=== PATIENT | male | born 1970 | race Caucasian/White ===

== ENCOUNTER 2023-06-23 10:44 | Emergency (ER) | payer OTHER ==
[~2023-06-23] VITALS: Ht 162.6 cm; Wt 77.6 kg
[2023-06-23 11:14] VITALS: TEMP 98
[2023-06-23 12:55] LABS: BASOPHILS % (AUTO) 1.1 % (0.0-2.0); EOSINOPHILS % (AUTO) 1.7 % (1.0-6.0); HEMATOCRIT 42.7 % (41-53); HEMOGLOBIN 14.3 g/dL (13.5-17.5); LYMPHOCYTES # (AUTO) 1.9 K/uL (1.0-4.8); LYMPHOCYTES % (AUTO) 31.7 % (22.0-44.0); MEAN CORPUSCULAR HEMOGLOBIN 32.3 pg (26.0-34.0); MEAN CORPUSCULAR HGB CONC 33.5 G/dL (31.0-37.0); MEAN CORPUSCULAR VOLUME 97 fL (80-100); MONOCYTES # (AUTO) 0.5 K/uL (0.1-1.0); MONOCYTES % (AUTO) 8.9 % (2.0-9.0); NEUTROPHILS # (AUTO) 3.4 K/uL (1.8-7.7); NEUTROPHILS % (AUTO) 56.6 % (40.0-70.0); PLATELET COUNT (AUTO) 175 K/uL (150-450); RED BLOOD CELL COUNT(AUTO) 4.43 MIL/uL (4.50-5.90); RED CELL DISTRIBUTION WIDTH 13.8 % (11.5-14.5); WHITE BLOOD COUNT (AUTO) 6.1 K/uL (4.5-11.0)
[2023-06-23 13:01] LABS: ALCOHOL, URINE DRUG SCREEN POSITIVE (NEGATIVE); AMPHET/METH SCREEN,URINE NEGATIVE (NEGATIVE); BARBITURATE SCREEN, URINE NEGATIVE (NEGATIVE); BENZODIAZEPINES SCREEN,URINE NEGATIVE (NEGATIVE); CANNABINOID SCREEN,URINE NEGATIVE (NEGATIVE); COCAINE SCREEN,URINE NEGATIVE (NEGATIVE); METHADONE SCREEN, URINE NEGATIVE (NEGATIVE); OPIATE SCREEN,URINE NEGATIVE (NEGATIVE); PHENCYCLIDINE SCREEN,URINE NEGATIVE (NEGATIVE)
[2023-06-23 13:04] LABS: ANION GAP 9 mmol/L (8-16); CALCIUM, TOTAL 8.9 mg/dL (8.8-10.5); CARBON DIOXIDE 26 mmol/L (22-29); CHLORIDE 102 mmol/L (98-107); CREATININE 0.64 mg/dL (0.60-1.30); GLOMERULAR FILTR. RATE CALC > 60 mL/min (>60); GLUCOSE,RANDOM 83 mg/dL (70-110); POTASSIUM 3.8 mmol/L (3.5-5.1); SODIUM SERUM 137 mmol/L (136-145); UREA NITROGEN, BLOOD 10 mg/dL (7-18)
[2023-06-23 13:10] LABS: ALANINE AMINOTRANSFERASE 141 U/L (12-78); ALKALINE PHOSPHATASE 61 U/L (46-116); ASPARTATE AMINOTRANSFERASE 107 U/L (15-37); BILIRUBIN,TOTAL 0.3 mg/dL (0.1-1.0); TOTAL PROTEIN, SERUM 7.8 g/dL (6.4-8.2)
[2023-06-23 13:12] LABS: TROPONIN I-HIGH SENSITIVITY 6 ng/L (<76)
[2023-06-23 13:21] LABS: ALCOHOL, BLOOD (SERUM) 219 mg/dL (0-10)
[2023-06-23 14:53] VITALS: BP 122/69; PULSE 79; RESP 16
== END 2023-06-23 14:55 | disposition home or self-care (01) ==
LOC: EMS 10:46
DX: F10.229 Alcohol dependence with intoxication, unspecified (principal); K70.30 Alcoholic cirrhosis of liver without ascites; Y90.9 Presence of alcohol in blood, level not specified; R53.1 Weakness
CPT/HCPCS: 99284; 70450; 80053; 84484; 85025; 36415; 93005; 80307; G0480

== ENCOUNTER 2023-07-04 18:52 | Emergency (ER) | payer OTHER ==
[~2023-07-04] VITALS: Ht 167.6 cm; Wt 86.8 kg
[2023-07-04] MEDS ORDERED: ONDANSETRON HCL 4 MG/2 ML VIAL IVP ONE (21:15)
[2023-07-04] MEDS ORDERED: SODIUM CHLORIDE 0.9% 1,000 ML IV ONE (21:15)
[2023-07-04] MEDS ORDERED: DiphenhydrAMINE HCL 50 MG/ML VIAL IVP ONE (21:15)
[2023-07-04 21:22] LABS: BASOPHILS % (AUTO) 1.4 % (0.0-2.0); EOSINOPHILS % (AUTO) 0.8 % (1.0-6.0); HEMATOCRIT 38.8 % (41-53); HEMOGLOBIN 13.4 g/dL (13.5-17.5); LYMPHOCYTES % (AUTO) 31.6 % (22.0-44.0); MEAN CORPUSCULAR HEMOGLOBIN 32.7 pg (26.0-34.0); MEAN CORPUSCULAR HGB CONC 34.5 G/dL (31.0-37.0); MEAN CORPUSCULAR VOLUME 95 fL (80-100); MONOCYTES # (AUTO) 0.5 K/uL (0.1-1.0); MONOCYTES % (AUTO) 7.9 % (2.0-9.0); NEUTROPHILS # (AUTO) 3.7 K/uL (1.8-7.7); NEUTROPHILS % (AUTO) 58.3 % (40.0-70.0); PLATELET COUNT (AUTO) 199 K/uL (150-450); RED BLOOD CELL COUNT(AUTO) 4.09 MIL/uL (4.50-5.90); RED CELL DISTRIBUTION WIDTH 14.3 % (11.5-14.5); WHITE BLOOD COUNT (AUTO) 6.4 K/uL (4.5-11.0)
[2023-07-04 21:34] LABS: ANION GAP 12 mmol/L (8-16); CALCIUM, TOTAL 8.9 mg/dL (8.8-10.5); CARBON DIOXIDE 26 mmol/L (22-29); CHLORIDE 101 mmol/L (98-107); CREATININE 0.65 mg/dL (0.60-1.30); GLOMERULAR FILTR. RATE CALC > 60 mL/min (>60); GLUCOSE,RANDOM 100 mg/dL (70-110); POTASSIUM 3.5 mmol/L (3.5-5.1); SODIUM SERUM 139 mmol/L (136-145); UREA NITROGEN, BLOOD 10 mg/dL (7-18)
[2023-07-04 21:40] LABS: ALANINE AMINOTRANSFERASE 63 U/L (12-78); ALBUMIN 4.1 g/dL (3.4-5.0); ALKALINE PHOSPHATASE 68 U/L (46-116); ASPARTATE AMINOTRANSFERASE 43 U/L (15-37); BILIRUBIN,TOTAL 0.2 mg/dL (0.1-1.0); TOTAL PROTEIN, SERUM 7.6 g/dL (6.4-8.2)
[2023-07-04 21:41] LABS: ALCOHOL, BLOOD (SERUM) 260 mg/dL (0-10)
[2023-07-04 22:57] LABS: TROPONIN I-HIGH SENSITIVITY 8 ng/L (<76)
[2023-07-05 00:12] VITALS: BP 141/91; PULSE 73; RESP 18; TEMP 98.6
== END 2023-07-05 00:19 | disposition home or self-care (01) ==
LOC: EMS 18:53
DX: F10.129 Alcohol abuse with intoxication, unspecified (principal); R53.1 Weakness; R51.9 Headache, unspecified; K70.30 Alcoholic cirrhosis of liver without ascites
CPT/HCPCS: 99285; 96374; 70450; 96361; 96375; 80053; 84484; 85025; 36415; 93005; G0480; J1200; J2405; J7030

== ENCOUNTER 2024-01-09 17:13 | Emergency (ER) | payer MEDICAID, OTHER ==
[~2024-01-09] VITALS: Ht 152.4 cm; Wt 70.4 kg
[2024-01-09 17:24] VITALS: BP 157/80; PULSE 85; RESP 18; TEMP 98.2
== END 2024-01-09 20:21 | disposition home or self-care (01) ==
LOC: EMS 17:14
DX: R04.0 Epistaxis (principal); F10.20 Alcohol dependence, uncomplicated
CPT/HCPCS: 99281; Z7502